=== PATIENT | female | born 1945 | race Caucasian/White ===

== ENCOUNTER 2019-02-22 00:20 | Outpatient (CLI) | payer MEDICARE, OTHER, SELFPAY ==
--- NOTE | 2019-02-22 12:35 | DI.MAMMO_ITS ---
SYMPTOMS/DIAGNOSIS: SCREENING, Z12.31 MAMMOGRAMS: Mammograms were interpreted according to the usual protocol including computer analysis with CAD system, tomosynthesis and C view imaging. The breast tissue is heterogeneously radiodense, which lowers the sensitivity of the study. There is no dominant mass. There are no suspicious calcifications and there has been no significant interval change when compared with prior images. SUMMARY: No evidence of malignancy, category 1. Yearly screening mammography is recommended. Breast density category C. MQSA ASSESSMENT OF FINDINGS: Negative. Category 1. Patient will receive a letter notifying them of these results. Bi-RADS category C. The breasts are heterogeneously dense, which may obscure small masses.
== END 2019-02-22 00:40 ==
PROVIDERS: PCP Nurse Practitioner Adult Health; Visit Provider Nurse Practitioner Adult Health
DX: Z12.31 Encounter for screening mammogram for malignant neoplasm of breast (principal)
CPT/HCPCS: 77063; 77067

== ENCOUNTER 2021-06-02 02:04 | Outpatient (CLI) | payer MEDICARE, OTHER, SELFPAY ==
--- NOTE | 2021-06-02 07:45 | DI.MAMMO_ITS ---
Exam(s) MAMMO SCREENING EXAM: MAMMO SCREENING CLINICAL HISTORY: screening,Z12.39. TECHNIQUE: Bilateral full field digital CC and MLO mammographic images were obtained with 3D tomosyn thesis and utilizing computer aided detection (CAD). COMPARISON: Prior mammograms dating back to 2012, the most recent being February 2019. FINDINGS: There has been no significant change in the appearance and distribution of the fibroglandular tissue There are no new spiculated masses nor malignant appearing microcalcification groups. Group of microcalcifications in central right breast is unchanged from prior studies. There is a well-defined noncalcified nodule in the left breast located 5 cm in from the nipple on the CC view, measuring 5 x 5 millimeters.. This was not evident on prior mammograms. Spot compression view recommended No new architectural distortion or skin thickening-traction IMPRESSION: No radiographic evidence of malignancy in the right breast. There is a 5 x 5 millimeter nodule in the left breast as described above, not evident on prior mammog harika. Ultrasound recommended to determine if this is solid or cystic. BI-RADS Category 0 - Assessment Incomplete: Need additional imaging evaluation Breast Density - Category C - Heterogeneously dense Breast density Category C or D implies that the patient has dense breast tissue. Dense breast tissue can make it harder to find cancer on a mammogram. Dense breast tissue is also associated with an incr eased risk of breast cancer. This information about the result of the mammogram report was provided to the patient to raise their awareness. Use this report when you speak with the patient about their risks for breast cancer, which includes their family history. At that time, you may recommend additional screening tests (Ultrasoun d or MRI) as these tests may add significant information. A negative radiographic report should not delay biopsy if a dominant or clinically suspicious mass is present. Up to ten percent of cancers are not identified on mammography. A negative report may reinforce clinical impression. Adenosis and dense breasts may obscure an underlying neoplasm. False positive reports average 6 to 10%. Patient will receive a letter notifying them of these results.
== END 2021-06-02 02:24 ==
PROVIDERS: PCP Nurse Practitioner Adult Health; Visit Provider Nurse Practitioner Adult Health
DX: Z12.31 Encounter for screening mammogram for malignant neoplasm of breast (principal); R92.8 Other abnormal and inconclusive findings on diagnostic imaging of breast
CPT/HCPCS: 77063; 77067

== ENCOUNTER → 2021-06-12 13:36 | Outpatient (BNVA) | payer MEDICARE, OTHER, SELFPAY | PROVIDERS: PCP Nurse Practitioner Adult Health; Referring Provider Nurse Practitioner Adult Health; Visit Provider Physical Therapy Assistant | DX: K62.5 Hemorrhage of anus and rectum (principal) | CPT/HCPCS: 99203 ==

== ENCOUNTER 2021-06-18 03:05 | Outpatient (CLI) | payer MEDICARE, OTHER, SELFPAY ==
--- NOTE | 2021-06-18 | DI.MAMMO_ITS ---
Exam(s) MG MAMMO SCREEN CALL BACK UNI US BREAST LT COMPLETE EXAM: US BREAST LT COMPLETE CLINICAL HISTORY: F/U MAMMO, LT BREAST NODULE. TECHNIQUE: Complete ultrasound of the left breast was performed including all 4 quadrants, the retro areolar region, and the ipsilateral axilla. Spot compression mammogram views also performed COMPARISON: Prior mammograms were reviewed. Recent screening mammogram 06/02/2021 revealed a small n odule in the left breast. FINDINGS: DIAGNOSTIC LEFT BREAST MAMMOGRAM: The previously described nodule persists on the spot views today. Therefore proceeded with breast ultrasound. LEFT BREAST ULTRASOUND: Scanning of all 4 quadrants reveals a solitary finding which is at the 8 o'cl ock position and corresponds to the new nodule on the mammogram. This has the appearance a 5 x 4 mil limeter microcyst. There are no other findings in all 4 quadrants nor in the retroareolar region. Scanning of the left axilla reveals benign lymph nodes. No significant lymphadenopathy IMPRESSION: There is a 5 x 4 millimeter benign microcyst which corresponds to the finding on the mammogram. No s olid lesions seen on ultrasound. Appropriate follow-up is repeat left breast mammogram in 6 months. BI-RADS Category 3 - 6 month - Probably Benign Finding: Recommend follow-up mammography in 6 months Breast Density - Category C - Heterogeneously dense Breast density Category C or D implies that the patient has dense breast tissue. Dense breast tissue can make it harder to find cancer on a mammogram. Dense breast tissue is also associated with an incr eased risk of breast cancer. This information about the result of the mammogram report was provided to the patient to raise their awareness. Use this report when you speak with the patient about their risks for breast cancer, which includes their family history. At that time, you may recommend additional screening tests (Ultrasoun d or MRI) as these tests may add significant information. A negative radiographic report should not delay biopsy if a dominant or clinically suspicious mass is present. Up to ten percent of cancers are not identified on mammography. A negative report may reinforce clinical impression. Adenosis and dense breasts may obscure an underlying neoplasm. False positive reports average 6 to 10%. Patient will receive a letter notifying them of these results.
== END 2021-06-18 03:25 ==
PROVIDERS: PCP Nurse Practitioner Adult Health; Visit Provider Nurse Practitioner Adult Health
DX: R92.8 Other abnormal and inconclusive findings on diagnostic imaging of breast (principal); N60.02 Solitary cyst of left breast
CPT/HCPCS: 76642; 77063; 77067

== ENCOUNTER → 2022-01-13 00:36 | Outpatient (CLI) | payer MEDICARE, OTHER, SELFPAY | PROVIDERS: PCP Nurse Practitioner Adult Health; Visit Provider Nurse Practitioner Adult Health ==

== ENCOUNTER → 2022-04-16 00:47 | Outpatient (CLI) | payer MEDICARE, OTHER, SELFPAY ==
--- NOTE | 2022-04-16 | DI.US_ITS ---
Exam(s) US BREAST LT COMPLETE US BREAST RT COMPLETE MG MAMMO DIAGNOSTIC BI EXAM: MG MAMMO DIAGNOSTIC BI AND COMPLETE BILATERAL BREAST ULTRASOUND CLINICAL HISTORY: 6m F/U L breast mammo for abn mammo 06/2021, R92.8. TECHNIQUE: Both CC and MLO views of both breasts were performed. Also performed additional bilatera l spot compression 3D mammographic images, obtained with 3D tomosynthesis technique and utilizing com puter aided detection (CAD). Bilateral COMPLETE breast ultrasound was performed including all 4 quadrants of both breasts as well as the retroareolar regions and both axillary regions. COMPARISON: Prior mammograms were reviewed, the most recent being May 2021. FINDINGS: DIAGNOSTIC BILATERAL MAMMOGRAM: In the left breast the previously described nodule is slightly increased in size, this noncalcified w ell-defined nodule measuring 7 by 6 millimeters, located 5 cm in from the nipple on the cc view. Thi s persists on spot compression view. Scattered benign-appearing micro and macrocalcifications in the left breast. No malignant-appearing microcalcification groups. No new architectural distortion or skin thickening-traction. In the right breast there is a suggestion of a similar noncalcified nodule best evident on the 3D MLO view located 3 cm in from the nipple and measuring approximately 6 x 5 millimeters. Scattered benig n-appearing macro and microcalcifications in the right breast. No new architectural distortion or sk in thickening-traction. BILATERAL COMPLETE BREAST ULTRASOUND: In the left breast there is a 6 x 4 millimeter microcysts at 12 o'clock position which corresponds to the nodule on the mammogram. A 2nd microcyst is evident at the 9 o'clock position which measures 5 x 4 millimeters. There are no solid lesions in all 4 quadrants. Scanning of the left axilla is negative for adenopathy. In the right breast there is a solitary 5 x 3 millimeter microcyst at the 7 o'clock position, corresp onding to the finding on the mammogram. Few benign lipomas are also noted. No solid lesions in all 4 quadrants nor in the retroareolar region. Scanning of the right axilla is negative for adenopathy. IMPRESSION: Bilateral nodules on mammography as described above which correspond to benign microcyst on today's b ilateral ultrasound. Most importantly, there are no solid lesions seen in either breast. Also no ax illary adenopathy. Appropriate follow-up is to keep this patient yearly mammogram schedule, with earlier imaging if a se lf detected breast change is noted.. The patient was informed of the findings and follow-up recommendations prior to leaving the [facility] today. BI-RADS Category 2 - Benign Findings Breast Density - Category B - Scattered areas of fibroglandular density Breast density Category C or D implies that the patient has dense breast tissue. Dense breast tissue can make it harder to find cancer on a mammogram. Dense breast tissue is also associated with an incr eased risk of breast cancer. This information about the result of the mammogram report was provided to the patient to raise their awareness. Use this report when you speak with the patient about their risks for breast cancer, which includes their family history. At that time, you may recommend additional screening tests (Ultrasoun d or MRI) as these tests may add significant information. A negative radiographic report should not delay biopsy if a dominant or clinically suspicious mass is present. Up to ten percent of cancers are not identified on mammography. A negative report may reinforce clinical impression. Adenosis and dense breasts may obscure an underlying neoplasm. False positive reports average 6 to 10%. Patient will receive a letter notifying them of these results.
== END ==
PROVIDERS: PCP Nurse Practitioner Adult Health; Visit Provider Nurse Practitioner Adult Health
DX: R92.8 Other abnormal and inconclusive findings on diagnostic imaging of breast (principal); R92.0 Mammographic microcalcification found on diagnostic imaging of breast
CPT/HCPCS: 76642; 77062; 77066; G0279

== ENCOUNTER 2022-05-05 14:49 | Outpatient (REF) | payer MEDICARE, OTHER, SELFPAY | END 2022-05-05 14:50 | disposition home or self-care (01) | LOC: LBN 14:49 | PROVIDERS: PCP Nurse Practitioner Adult Health; Visit Provider Family Medicine | DX: M54.89 Other dorsalgia (principal); R82.998 Other abnormal findings in urine | CPT/HCPCS: 87077; 87086; 87186 ==

== ENCOUNTER 2022-05-13 11:15 | Outpatient (REF) | payer MEDICARE, OTHER, SELFPAY | END 2022-05-13 11:16 | disposition home or self-care (01) | LOC: LBN 11:15 | PROVIDERS: PCP Nurse Practitioner Adult Health; Visit Provider Nurse Practitioner | DX: M54.9 Dorsalgia, unspecified (principal) | CPT/HCPCS: 87086 ==

== ENCOUNTER 2022-05-18 16:09 | Outpatient (REF) | payer MEDICARE, OTHER, SELFPAY ==
[2022-05-18 22:34] LABS: Bilirubin Negative (Negative); Blood Negative (Negative); Clarity Clear (Clear); Glucose Negative (Negative); Ketones Negative (Negative); Leukocyte Esterase Negative (Negative); Nitrite Negative (Negative); Specific Gravity 1.015 (1.005-1.025); Urobilinogen 0.2 EU/dL (Up TO 0.2); pH 5.5 (5-8)
== END 2022-05-18 16:10 | disposition home or self-care (01) ==
LOC: LBN 16:09
PROVIDERS: PCP Nurse Practitioner Adult Health; Visit Provider Nurse Practitioner Adult Health
DX: R31.29 Other microscopic hematuria (principal)
CPT/HCPCS: 81003

== ENCOUNTER 2022-05-28 14:25 | Outpatient (REF) | payer MEDICARE, OTHER, SELFPAY ==
[2022-05-31 10:40] LABS: COVID-19 RT-PCR UVMMC Result Negative (Negative)
== END 2022-05-28 14:26 | disposition home or self-care (01) ==
LOC: LBN 14:25
PROVIDERS: Nurse Practitioner; PCP Nurse Practitioner Adult Health; Visit Provider Nurse Practitioner Adult Health
DX: Z20.822 Contact with and (suspected) exposure to COVID-19 (principal)
CPT/HCPCS: U0003

== ENCOUNTER 2022-06-02 03:28 | Outpatient (CLI) | payer MEDICARE, OTHER, SELFPAY ==
[2022-06-02] MEDS: Inhaler, Assist Device 1 EACH MC (16:26)
[2022-06-02] MEDS: Albuterol HFA 18 GM 200 PUFF INH IH (16:26)
--- NOTE | 2022-06-05 15:08 | W.PFT ---
Date of service: 06/02/22 Time of Service: 12:54 Pulmonary Function Test Result Requesting Provider Ilene Samson Indications: Dyspnea Interpretation Spirometry: There is moderate-severe airflow limitation. There is not a significant bronchodilator response. The FVC is low. Lung Volumes: Normal lung volumes Diffusion Capacity: Normal diffusion. Airway Pressure: Increased airways resistance. Impression Moderate to severe airflow obstruction with a normal diffusion. In the correct clinical setting, this could represent COPD with chronic bronchitis. The low FVC is due to severe airflow obstruction. Clinical Correlation therefore is recommended.
== END 2022-06-02 03:29 | disposition home or self-care (01) ==
LOC: RT 03:28
PROVIDERS: PCP Nurse Practitioner Adult Health; Visit Provider Nurse Practitioner
DX: R05.3 Chronic cough (principal); R06.02 Shortness of breath; R06.09 Other forms of dyspnea; J98.4 Other disorders of lung
CPT/HCPCS: 94060; 94726; 94729

== ENCOUNTER → 2022-06-12 00:17 | Outpatient (CLI) | payer MEDICARE, OTHER, SELFPAY ==
--- NOTE | 2022-06-12 07:15 | DI.CT_ITS ---
Exam(s) CT CHEST WO EXAM: CT CHEST WO CLINICAL HISTORY: Dry cough x 3 mos, NORIEGA, SOB,FORMER SMOKER, R05.3,R06.02,Z87.891. TECHNIQUE: Multi planar reconstructions were performed. CONTRAST MATERIAL: None COMPARISON: No exams were available for comparison FINDINGS: CHEST: LUNGS: There is multilevel infiltrate bilaterally. This is more significantly more prominent through out the right lung. There also a few small nodular infiltrates in the right lung measuring up to 9 m illimeters in size. In the opposite-left lung there is infiltrate in the left upper lobe. There is sparing of the left l ower lobe. No pleural effusions on either side. No significant focal findings in the trachea and mainstem bronc hi. MEDIASTINUM: There is no obvious hilar nor mediastinal adenopathy. Visualized thyroid unremarkable.No obvious axillary adenopathy CARDIAC: Heart size is normal. There is no pericardial effusion.Caliber of the thoracic aorta is wit hin upper normal limits. VISUALIZED UPPER ABDOMEN:No adrenal masses. No splenomegaly. There is a cyst in the superior pole o f the right kidney, this benign cyst measuring approximately 1.7 x 1.7 cm. OSSEOUS: There is a large lytic appearing lesion in the T11 vertebral body and extending into the lef t pedicle. There is dehiscence of the posterior cortex of the vertebra at this level with extension of soft tissue mass into the spinal canal.. No other lytic osseous lesions identified in the field o f view of this study. IMPRESSION: 1. Extensive infiltrate throughout the right lung as well as some infiltrate in the left upper lobe. There is both infiltrate and nodular infiltrates.. Suspect neoplasm, particularly right lower lobe. No pleural effusions. 2. 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 3. Other findings as above. Stat reported. RADIATION DOSE DELIVERED: 409.46mGy.cm Total DLP DATA REPOSITORY: All CT scans at this facility are submitted to the National Radiology Data Registry (NRDR) Dose Index Registry (DIR) with the [employer] ([employer]). RADIATION OPTIMIZATION: All CT scans at this facility use at least one of these dose optimization te chniques: automated exposure control; mA and/or kV adjustment per patient size (includes targeted exa ms where dose is matched to clinical indication); or iterative reconstruction.
== END ==
PROVIDERS: PCP Nurse Practitioner Adult Health; Visit Provider Nurse Practitioner
DX: R05.3 Chronic cough (principal); R06.02 Shortness of breath; R06.09 Other forms of dyspnea; Z87.891 Personal history of nicotine dependence; R91.8 Other nonspecific abnormal finding of lung field
CPT/HCPCS: 71250

== ENCOUNTER 2022-06-19 12:50 | Emergency (ER) | payer MEDICARE, OTHER, SELFPAY ==
[2022-06-19 13:22] VITALS: BP 175/97; PULSE 77; RESP 18; TEMP 36.6; O2SAT 90
[2022-06-19] MEDS: Normal Saline 1,000 ML 1000 ML IV (14:20)
[2022-06-19] MEDS: Ondansetron O.D.T. 4 MG TABEF PO (14:21)
--- NOTE | 2022-06-19 14:40 | W.ED.GENAD ---
Discharge Plan Disposition Patient Disposition: HOME Condition: Improving Discharge Details Clinical Impression: Narcotic-induced nausea and vomiting Primary Care Provider: Jeannie Aggarwal ED Provider: Cecilio Monahan Home Meds and New Rx's Prescriptions: New ondansetron 4 mg tablet,disintegrating 4 mg PO Q6H PRN (Reason: nausea and vomiting) Qty: 20 0RF Continued omeprazole 20 mg capsule,delayed release(DR/EC) 20 mg PO DAILY Qty: 90 0RF Rx Instructions: Take on an empty stomach 30-min prior to food. albuterol sulfate [ProAir HFA] 90 mcg/actuation HFA aerosol inhaler 1 - 2 puff inhalation Q4H PRN (Reason: shortness of breath or wheezing) Qty: 8.5 1RF Rx Instructions: Start with 2puffs TID x1-2w, then BID x1-2w, then daily, then PRN for chronic bronchitis (?COPD): USE WITH SPACER prednisone 10 mg tablet See Rx Instructions PO DAILY Qty: 1 0RF Rx Instructions: Take 14-39-32-30-20-10mg each for 2 days in AM with food orally daily; dispense QS for chronic bronchitis/?COPD naproxen 250 mg tablet 250 mg PO BID PRN acetaminophen [Tylenol Extra Strength] 500 mg tablet 500 mg PO Q6H PRN oxycodone 5 mg tablet 5 mg PO Q4H MDD 20mg PRN (Reason: metastatic lung caner) Qty: 6 0RF Rx Instructions: Until on Fentanyl patch for 18 hours, then stop fentanyl 12 mcg/hr patch 72 hour 1 patch transdermal Q72H MDD 12mg fentanyl Qty: 5 0RF Discharge Instructions Instructions: Acute Nausea and Vomiting (ED) Additional Instructions: If you develop any new or significant worsening of symptoms feel free to return the emergency department for reassessment. Otherwise take medication as prescribed and follow-up with your primary care provider for reassessment. Slowly advance your diet as tolerated Referrals: Jeannie Aggarwal, ADMINISTRATIVE SALES ASSISTANT [Primary Care Provider] - (As needed for reassessment) Discharge Data Discharge Date/Time-TO BE ENTERED AT DEPARTURE: 06/19/22 16:06 Medical Decision Making Patient presenting to the emergency department for chief complaint of nausea vomiting. She states that this started yesterday evening after she began taking oxycodone and fentanyl patch for pain. 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 Patient denies any other change in physical condition. Exam is benign. I have high suspicion of narcotic induced nausea vomiting, labs reassuring, patient did have elevated white count but I feel this is secondary to acute nausea and vomiting and not acute infectious process. Patient given Zofran and fluids which significantly improved her symptoms. Patient discharged with prescription for Zofran and recommended to follow-up with primary care provider. After discussion of diagnosis and plan of care patient has no further needs, questions, or concerns and states clear understanding to return to the emergency department for any worsening symptoms. This documentation was generated using [employer] dictation system, please disregard any oddities of phrase or misspellings. Lab Data Lab results reviewed: Yes I reviewed the patient's lab results. HPI General Mode of arrival: ambulatory. Date/Time Provider Initiated Documentation: 06/19/22 13:29. Limitations to Documentation: no limitations. Information obtained by: patient and RN notes reviewed. History of Present Illness 76 year old F presents to the emergency department with the chief complaint of Nausea and vomiting, described as moderate, Patient started experiencing this hour(s) (20) and it has been constant. No relieving factors improve symptom(s), Medication worsens symptoms . Patient notes no other symptoms.. Patient did receive the following treatments prior to arrival, none Related Data Home Medications Medication Instructions Recorded Confirmed omeprazole 20 mg capsule,delayed 20 mg PO DAILY #90 caps 04/10/22 06/19/22 release acetaminophen 500 mg tablet 500 mg PO Q6H PRN 05/05/22 06/19/22 (Tylenol Extra Strength) naproxen 250 mg tablet 250 mg PO BID PRN 05/05/22 06/19/22 albuterol sulfate 90 mcg/actuation 1 - 2 puff inhalation Q4H PRN 06/10/22 06/19/22 aerosol inhaler (ProAir HFA) shortness of breath or wheezing #8.5 grams prednisone 10 mg tablet See Rx Instructions PO DAILY #1 tab 06/10/22 06/19/22 fentanyl 12 mcg/hr transdermal 1 patch transdermal Q72H #5 ea 06/18/22 06/19/22 patch oxycodone 5 mg tablet 5 mg PO Q4H PRN metastatic lung 06/18/22 06/19/22 caner #6 tabs ondansetron 4 mg disintegrating 4 mg PO Q6H PRN nausea and 06/19/22 tablet vomiting #20 tabs Previous Rx's Medication Instructions Recorded omeprazole 20 mg capsule,delayed 20 mg PO DAILY #90 caps 04/10/22 release albuterol sulfate 90 mcg/actuation 1 - 2 puff inhalation Q4H PRN 06/10/22 aerosol inhaler (ProAir HFA) shortness of breath or wheezing #8.5 grams prednisone 10 mg tablet See Rx Instructions PO DAILY #1 tab 06/10/22 fentanyl 12 mcg/hr transdermal 1 patch transdermal Q72H #5 ea 06/18/22 patch oxycodone 5 mg tablet 5 mg PO Q4H PRN metastatic lung 06/18/22 caner #6 tabs ondansetron 4 mg disintegrating 4 mg PO Q6H PRN nausea and 06/19/22 tablet vomiting #20 tabs Allergies Allergy/AdvReac Type Severity Reaction Status Date / Time metronidazole Allergy Severe THROAT Verified 06/18/22 10:13 STARTED TO SWELL General Stated Complaint: Nausea/Vomit/Diar FRANKLIN: 3 Review of Systems Constitutional Constitutional: Denies chills, Denies fatigue, Denies fever(s), Denies headache(s), Reports malaise and Reports poor appetite ENT Ears, Nose, Mouth, and Throat: Denies dizziness and Denies headache(s) Cardiovascular Cardiovascular: Denies chest pain, Denies syncope and Denies dyspnea Respiratory Respiratory: Denies dyspnea Gastrointestinal Gastrointestinal: Reports as per HPI, Denies abdominal pain, Denies diarrhea, Reports nausea and Reports vomiting Musculoskeletal Musculoskeletal: Reports back pain (Improving ) Integumentary/Breasts Skin/Breast: Denies rash Neurologic Neurologic: Denies dizziness, Denies syncope and Denies headache(s) Endocrine Endocrine: Denies fatigue PFSH All Active Problems (Updated 06/19/22 @ 15:58 by Cecilio Monahan NP) Narcotic-induced nausea and vomiting (Acute) Bone metastases (Acute) Stage 4 lung cancer (Acute) Suspected lung cancer (Acute ~06/2022) Elevated BP without diagnosis of hypertension (Acute) Heartburn (Acute ~04/2022) Family history of colon cancer (Chronic) M Category 3 mammography result with short follow-up interval suggested for probably benign finding (Acute ~06/2021) Osteopenia (Chronic 02/07/13) DXA 2012, +osteopenia lumbar spine; t-score -1.1 Medical History Adenomatous colon polyp (~2013) 2008 colonoscopy with CD--Intramucosal adenocarcinoma 05/2014 colonoscopy--> tubular adenoma 2018-->no polyps or masses, next 2023 Ankle pain Bright red rectal bleeding CIS Vulva/Vaginal, 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 Polyp of colon, villous adenoma Trimalleolar fracture of ankle, open right repair Brodie 02/2001 Surgical History Cataract R - [place] date unknown H/O colonoscopy (~2018) 2018--no polyps masses, recalled 5y due to h/o tubular adenoma H/O right hemicolectomy 2008 History of appendectomy 1981 S/P HILARIO (total abdominal hysterectomy) 1985 Dr Bro Family History Mother Personal history of malignant neoplasm colon Father Heart disease Sister Personal history of malignant neoplasm Social History Smoking/Tobacco Use Status: Former Tobacco Use Quit Date: 09/06/99 Tobacco: How many years used: 38 Smoking risk assessment performed?: Yes Alcohol Intake: current Alcohol Intake frequency: a few times a week Alcohol type: hard liquor Drug use: Never Adopted: No Household members: spouse Number of Children: 3 Education Level: college Details: 1 year current occupation: retired- [employer] What type of physical activity do you participate in: none Do you feel safe at home: Yes Do you feel safe in your relationship?: Yes Exam Const General: cooperative Orientation: alert, awake and oriented x3 Resp Effort & Inspection: normal respiratory effort and able to speak in complete sentences Auscultation: clear to auscultation bilaterally Cardio Rate: regular rate Rhythm: regular rhythm Heart Sounds: S1 normal and S2 normal GI Palpation: soft, not firm, no guarding, no masses, no pulsatile masses, not rigid and nontender Auscultation: normal bowel sounds Back/Spine/Pelvis Back: no CVA tenderness Neuro General: patient alert, patient awake, patient oriented x3, gait normal and moves all extremities Course Vital Signs Vital signs: Vital Signs Temperature 36.6 C 06/19/22 13:22 Pulse 77 06/19/22 13:22 Respiratory Rate 18 06/19/22 13:22 Blood Pressure 175/97 H 06/19/22 13:22 Pulse Oximetry 90 L 06/19/22 13:22 Temperature 36.6 C 06/19/22 13:22 Temperature Source Temporal Artery Scan 06/19/22 13:22 Pulse 77 06/19/22 13:22 Respiratory Rate 18 06/19/22 13:22 Blood Pressure 175/97 H 06/19/22 13:22 Pulse Oximetry 90 L 06/19/22 13:22 Pain Level 0 06/19/22 13:22
[2022-06-19 14:46] LABS: Abs Immature Grans 0.08 10^3/uL (0.0-0.06); Basophils % 0.4; Eosinophils % 2.1; HGB 13.8 g/dL (11.2-15.7); Immature Grans % 0.6; Lymphocytes % 8.5; MCH 26.9 pg (27.0-33.0); MCHC 32.9 % (32.0-36.0); MCV 82 fL (80-95); MPV 9.7 fL (8.0-11.0); Monocytes % 6.5; Neutrophils % 81.9; Platelet Count 500 10^3/uL (130-400); RBC 5.13 10^6/uL (3.93-5.22); RDW 14.6 % (11.7-14.6); RDW-SD 43.8 fL; WBC 14.07 10^3/uL (4.4-10.8)
[2022-06-19 14:47] LABS: Absolute Basophil Count 0.06 10^3/uL (0.0-0.2); Absolute Monocyte Count 0.91 10^3/uL (0.1-0.8); Absolute Neutrophil Count 11.52 10^3/uL (1.2-6.7)
[2022-06-19 15:01] LABS: ALT 23 U/L (14-59); AST 15 U/L (15-37); Albumin 3.5 g/dL (3.4-5.0); Alkaline Phosphatase 136 U/L (46-116); Anion Gap 6.5 mmol/L (3-11); BUN 14 mg/dL (7-18); Bilirubin, Total 0.4 mg/dL (0.2-1.0); CO2 31.5 mmol/L (21.0-32.0); CREATININE 0.8 mg/dL (0.55-1.02); Calcium 9.9 mg/dL (8.5-10.1); Chloride 98 mmol/L (98-107); Estimated GFR 76.31 (mL/min/1.73m2); Glucose 119 mg/dL (74-106); Magnesium 1.9 mg/dL (1.8-2.4); Potassium 3.4 mmol/L (3.5-5.1); Sodium 136 mmol/L (136-145); Total Protein 7.4 g/dL (6.4-8.2)
[2022-06-19 15:28] LABS: Bilirubin Negative (Negative); Blood Negative (Negative); Clarity Sl Cloudy (Clear); Glucose Negative (Negative); Ketones 80 mg/dL (Negative); Leukocyte Esterase Negative (Negative); Nitrite Negative (Negative); Urobilinogen 0.2 EU/dL (Up TO 0.2)
== END 2022-06-19 16:06 | disposition home or self-care (01) ==
PROVIDERS: Emergency Provider Nurse Practitioner Family; PCP Nurse Practitioner Adult Health
DX: R11.2 Nausea with vomiting, unspecified (principal); T40.2X5A Adverse effect of other opioids, initial encounter; C79.51 Secondary malignant neoplasm of bone; C34.90 Malignant neoplasm of unspecified part of unspecified bronchus or lung; D72.829 Elevated white blood cell count, unspecified; Z87.891 Personal history of nicotine dependence
CPT/HCPCS: 80053; 84145; 96361; 96374; 99284; 81003; 83605; 83735; 85025

== ENCOUNTER 2022-08-17 03:19 | Outpatient (CLI) | payer MEDICARE, OTHER, SELFPAY ==
[2022-08-17 11:10] LABS: Abs Immature Grans 0.15 10^3/uL (0.0-0.06); Absolute Eosinophil Count 0.12 10^3/uL (0.0-0.7); Absolute Lymphocyte Count 0.92 10^3/uL (1.2-3.4); Absolute Monocyte Count 0.98 10^3/uL (0.1-0.8); Absolute Neutrophil Count 7.17 10^3/uL (1.2-6.7); Basophils % 1.1; Eosinophils % 1.3; HCT 37.2 % (36.0-46.0); HGB 11.8 g/dL (11.2-15.7); Immature Grans % 1.6; Lymphocytes % 9.7; MCH 26.7 pg (27.0-33.0); MCHC 31.7 % (32.0-36.0); MCV 84 fL (80-95); MPV 9.2 fL (8.0-11.0); Monocytes % 10.4; Neutrophils % 75.9; Platelet Count 482 10^3/uL (130-400); RBC 4.42 10^6/uL (3.93-5.22); RDW 16.7 % (11.7-14.6); RDW-SD 51.2 fL; WBC 9.44 10^3/uL (4.4-10.8)
[2022-08-17 11:32] LABS: ALT 54 U/L (14-59); AST 24 U/L (15-37); Albumin 2.9 g/dL (3.4-5.0); Alkaline Phosphatase 160 U/L (46-116); Anion Gap 6.3 mmol/L (3-11); BUN 17 mg/dL (7-18); Bilirubin, Total 0.3 mg/dL (0.2-1.0); CO2 28.7 mmol/L (21.0-32.0); CREATININE 0.7 mg/dL (0.55-1.02); Calcium 8.4 mg/dL (8.5-10.1); Chloride 100 mmol/L (98-107); Estimated GFR 89.02 (mL/min/1.73m2); FREE T4 1.01 ng/dL (0.76-1.46); Glucose 104 mg/dL (74-106); Magnesium 2.2 mg/dL (1.8-2.4); Potassium 3.9 mmol/L (3.5-5.1); Sodium 135 mmol/L (136-145); TSH 3.61 uIU/mL (0.36-3.74); Total Protein 6.3 g/dL (6.4-8.2)
== END 2022-08-17 03:20 | disposition home or self-care (01) ==
LOC: LBO 03:22
PROVIDERS: PCP Nurse Practitioner Adult Health; Visit Provider Internal Medicine Medical Oncology
DX: C34.31 Malignant neoplasm of lower lobe, right bronchus or lung (principal); C78.7 Secondary malignant neoplasm of liver and intrahepatic bile duct; Z79.899 Other long term (current) drug therapy
CPT/HCPCS: 36415; 80053; 83735; 84439; 84443; 85025

== ENCOUNTER → 2022-09-02 01:54 | Outpatient (CLI) | payer MEDICARE, OTHER, SELFPAY ==
--- NOTE | 2022-09-02 | DI.CT_ITS ---
Exam(s) CT CHEST/ABD W EXAM: CT CHEST/ABD W CLINICAL HISTORY: LUNG CANCER C34.31 LIVER CANCER C78.7 ASSESS TREATMENT TECHNIQUE: Imaging Protocol: Axial computed tomography images with coronal and sagittal reformatted images were created and reviewed CONTRAST MATERIAL: Intravenous: Omnipaque 350 contrast volume:100 mL Oral: Yes COMPARISON: CT CT CHEST WO from 06/12/2022 FINDINGS: CHEST: Tracheobronchial tree: Patent where visualized. Pulmonary parenchyma: The cystic lesion in the left upper lobe appears stable. The nodular mass in t he left upper lobe is unrestrained. The left lung is otherwise clear. The multifocal opacities in t he right lung have progressed since the prior examination. The area of confluence in the superior se gment of the right lower lobe has shown now measures 5.3 x 4.1 x 3.1 cm. There of also developed mul tiple rounded ill-defined nodules in the right lung. There is a compliant opacity measuring 2.9 x 2. 1 cm now seen in the right lower lobe. There is layering atelectasis or infiltrate in the right lung base. Visualized thyroid gland: Unremarkable. Mediastinum and Caryl: No dominant adenopathy or fluid collection. The esophagus is unremarkable. Pleura: There is a new small to moderate size right pleural effusion. No left pleural effusion is se en. No pneumothorax is present. Heart: The heart is not dilated. No coronary artery calcifications are seen. No pericardial effusion. Pulmonary arteries: No pulmonary emboli are identified. Aorta: Thoracic aorta non-dilated. Atherosclerosis is present. Lymph nodes: Within normal limits. Soft tissues: Unremarkable. Bones:Within normal limits for the patient's age. There are lytic rib lesions present consistent wit h metastatic disease. There is a lytic lesion in the T5 vertebral body with mild compression of the superior endplate which appears pathologic. ABDOMEN: Liver: There are several tiny well-circumscribed hypodense nodules in the liver. They are too small for further characterization but appear to represent small cysts. There is a 3.7 x 3.8 cm simple cys t in the inferior aspect of the right lobe of the liver. There is a heterogeneous 3.3 x 2.9 cm hypod ense mass in the left lobe of the liver. Portal, Superior Mesenteric, and Splenic Veins: Unremarkable. Gallbladder and Biliary Tract: No radiodense calculus or dilation. Pancreas: Normal density, no abnormal calcifications or inflammatory process. Spleen: Normal. Adrenals: There is a 1.2 x 1.4 cm hypodense nodule in the left adrenal gland. The right adrenal glan d has a small 0.6 cm nodule present. Kidneys: Normal size, contour and axis. No radiodense stones or obstructive uropathy. There is a 2 x 1.8 cm simple cyst in the right kidney. No follow-up is recommended. Abdominal Aorta: Abdominal portion non-dilated. Atherosclerosis is present. Bowel: Postsurgical changes are seen in the right upper quadrant. Findings raise a question of a santa or partial colectomy. Please correlate with the patient's clinical history. Bowel is otherwise unre markable. Peritoneal Cavity: No ascites, collection or mesenteric inflammatory response. No free air. Lymph Nodes: Within normal limits. Bones: Within normal limits for the patient's age. There is a marked compression deformity of T12. There is a sclerotic appearance to the vertebral body. There is a lytic lesion involving the right p edicle cyst consistent with metastatic disease. The compression fracture deformity has significantly progressed since the CT scan from 06/12/2022. There is also a lytic lesion seen in the anterolateral aspect of the right 9th rib. Soft Tissues: Unremarkable. IMPRESSION: 1. Interval increase in size of the masslike area in the superior segment of the right lower lobe. 2. Interval progression of the multifocal nodules in the right lung consistent with metastatic diseas e. 3. 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 Compression deformities involving T5 and T12. Since the prior examination there has been marked progression of the T12 compression fract ure. 4. Right basilar infiltrate and development of a small to moderate size right pleural effusion. 5. Hypodense hepatic mass suspicious for metastasis. 6. Bilateral adrenal nodules. These are indeterminate. Metastases cannot be excluded. RADIATION DOSE DELIVERED: 1,118.08mGy.cm Total DLP DATA REPOSITORY: All CT scans at this facility are submitted to the National Radiology Data Registry (NRDR) Dose Index Registry (DIR) with the [employer] ([employer]). RADIATION OPTIMIZATION: All CT scans at this facility use at least one of these dose optimization te chniques: automated exposure control; mA and/or kV adjustment per patient size (includes targeted exa ms where dose is matched to clinical indication); or iterative reconstruction.
[2022-09-02] MEDS: Barium Sulfate 2% W/V-Berry Smoothie 450 ML BTL PO (08:31)
[2022-09-02] MEDS: Omnipaque 350 MG/ML 500 ML BTL-Imaging package IJ (09:06)
== END ==
PROVIDERS: PCP Nurse Practitioner Adult Health; Visit Provider Nurse Practitioner Family
DX: C34.31 Malignant neoplasm of lower lobe, right bronchus or lung (principal); C78.7 Secondary malignant neoplasm of liver and intrahepatic bile duct; J98.11 Atelectasis; J90 Pleural effusion, not elsewhere classified; C79.51 Secondary malignant neoplasm of bone; N28.1 Cyst of kidney, acquired; E27.8 Other specified disorders of adrenal gland
CPT/HCPCS: 71260; 74160

== ENCOUNTER 2022-09-14 03:09 | Outpatient (CLI) | payer MEDICARE, OTHER, SELFPAY ==
[2022-09-14 07:31] LABS: Abs Immature Grans 0.08 10^3/uL (0.0-0.06); Absolute Basophil Count 0.09 10^3/uL (0.0-0.2); Absolute Eosinophil Count 0.74 10^3/uL (0.0-0.7); Absolute Lymphocyte Count 1.11 10^3/uL (1.2-3.4); Absolute Monocyte Count 1.13 10^3/uL (0.1-0.8); Basophils % 0.7; Eosinophils % 5.9; HCT 38.3 % (36.0-46.0); HGB 11.8 g/dL (11.2-15.7); Immature Grans % 0.6; Lymphocytes % 8.9; MCH 26.4 pg (27.0-33.0); MCHC 30.8 % (32.0-36.0); MCV 86 fL (80-95); Monocytes % 9.1; Neutrophils % 74.8; Platelet Count 498 10^3/uL (130-400); RBC 4.47 10^6/uL (3.93-5.22); RDW 15.3 % (11.7-14.6); RDW-SD 48.1 fL; WBC 12.47 10^3/uL (4.4-10.8)
[2022-09-14 07:32] LABS: Absolute Neutrophil Count 9.33 10^3/uL (1.2-6.7)
[2022-09-14 07:55] LABS: ALT 18 U/L (14-59); AST 12 U/L (15-37); Albumin 2.6 g/dL (3.4-5.0); Alkaline Phosphatase 139 U/L (46-116); Anion Gap 7.6 mmol/L (3-11); BUN 15 mg/dL (7-18); Bilirubin, Total 0.3 mg/dL (0.2-1.0); CO2 28.4 mmol/L (21.0-32.0); CREATININE 0.7 mg/dL (0.55-1.02); Calcium 8.3 mg/dL (8.5-10.1); Chloride 104 mmol/L (98-107); Estimated GFR 89.02 (mL/min/1.73m2); FREE T4 1.23 ng/dL (0.76-1.46); Glucose 98 mg/dL (74-106); Potassium 3.6 mmol/L (3.5-5.1); Sodium 140 mmol/L (136-145); TSH 2.94 uIU/mL (0.36-3.74); Total Protein 6.3 g/dL (6.4-8.2)
== END 2022-09-14 03:10 | disposition home or self-care (01) ==
LOC: LBO 03:09
PROVIDERS: PCP Nurse Practitioner Adult Health; Visit Provider Internal Medicine Medical Oncology
DX: Z79.899 Other long term (current) drug therapy (principal); C34.31 Malignant neoplasm of lower lobe, right bronchus or lung
CPT/HCPCS: 36415; 80053; 83735; 84439; 84443; 85025